=== PATIENT | female | born 1975 | race African-American/Black ===

== ENCOUNTER 2017-03-10 13:30 | Inpatient (IN) | payer OTHER ==
[2017-03-10 17:12] VITALS: BMI 39.5
--- NOTE | 2017-03-10 18:56 | HP ---
COWS - Scale Resting Pulse: 2= [place] 101-120 Sweatin= Chills/Flushing Restless Observation: 1= Difficult to Sit Still Pupil Size: 0= Normal to Room Light Bone or Joint Aches: 1= Mild Discomfort Runny Nose/ Eye Tearin= Runny Nose/Eyes GI Upset > 30mins: 3= Vomiting/Diarrhea Tremor Observation: 2= Slight Tremor Visible Yawning Observation: 0= None Anxiety or Irritability: 2=Irritable/Anxious Goose Flesh Skin: 0=Smooth Skin COWS Score: 14 Admission [facility] Chief Complaint: WITHDRAWAL SX Allergies/Adverse Reactions: Allergies Allergy/AdvReac Type Severity Reaction Status Date / Time aspirin Allergy Severe Verified 03/10/17 17:15 avocado Allergy Severe Rash Verified 03/10/17 17:15 banana Allergy Severe Rash Verified 03/10/17 17:15 erythromycin base Allergy Severe Rash Verified 03/10/17 17:15 kiwi Allergy Severe Rash Verified 03/10/17 17:15 latex Allergy Severe Rash Verified 03/10/17 17:15 NSAIDS (Non-Steroidal Allergy Severe Itching Verified 03/10/17 17:15 Anti-Inflamma Penicillins Allergy Severe Itching Verified 03/10/17 17:15 pepper Allergy Severe Rash Verified 03/10/17 17:15 Tetracyclines Allergy Severe Rash Verified 03/10/17 17:15 History of Present Illness: 41 YEARS OLD FEMALE WITH LONG HISTORY OF OPIATE DEPENDENCE HAS DIABETES II AND ANXIETY IS ADMITTED TO DETOX Exam Limitations: No Limitations - Ebola screening Have you traveled outside of the country in the last 21 days: No Have you had contact with anyone from an Ebola affected area: No Have you been sick,other than usual withdrawal symptoms: No Do you have a fever: No - Review of Systems Constitutional: Changes in sleep, Weight Stable EENT: reports: Blurred Vision (EYE GLASSES) Respiratory: reports: No Symptoms reported Cardiac: reports: No Symptoms Reported GI: reports: Nausea, Poor Fluid Intake, Abdominal cramping : reports: No Symptoms Reported Musculoskeletal: reports: Back Pain, Joint Pain, Muscle Pain, Neck Pain Integumentary: reports: No Symptoms Reported Neuro: reports: Tremors Endocrine: reports: No Symptoms Reported Hematology: reports: No Symptoms Reported Psychiatric: reports: Judgement Intact, Orientated x3, Anxious, Depressed Other Systems: Reviewed and Negative Patient History - Patient Medical History Hx Anemia: No Hx Asthma: No Hx Chronic Obstructive Pulmonary Disease (COPD): No Hx Cancer: No Hx Cardiac Disorders: No Hx Congestive Heart Failure: No Hx Hypertension: No Hx Hypercholesterolemia: No Hx Pacemaker: No HX Cerebrovascular Accident: No Hx Seizures: No Hx Dementia: No Hx Diabetes: Yes (Tyoe II) Hx Gastrointestinal Disorders: No Hx Liver Disease: No Hx Genitourinary Disorders: No Hx Sexually Transmitted Disorders: No Hx Renal Disease (ESRD): No Hx Thyroid Disease: No Hx Human Immunodeficiency Virus (HIV): No Hx Hepatitis C: No Hx Depression: Yes Hx Suicide Attempt: No Hx Bipolar Disorder: No Hx Schizophrenia: No - Patient Surgical History Past Surgical History: Yes Hx Neurologic Surgery: No Hx Cataract Extraction: No Hx Cardiac Surgery: No Hx Lung Surgery: No Hx Breast Surgery: Yes (breast reduction and lift in 10/17) Hx Breast Biopsy: No Hx Abdominal Surgery: No Hx Appendectomy: No Hx Cholecystectomy: No Hx Genitourinary Surgery: No Hx Section: No Hx Orthopedic Surgery: No Hx Hysterectomy: No Other Surgical History: bunionectomy R foot Anesthesia Reaction: No - PPD History Previous Implant?: Yes Documented Results: Negative w/o proof Implanted On Prior [facility] Admission?: No PPD to be Administered?: Yes - Reproductive History Patient is a Female of Child Bearing Age (11 -55 yrs old): Yes Last Menstrual Period: 03/09/17 Patient : No - Smoking Cessation Smoking history: Never smoked Have you smoked in the past 12 months: No Hx Chewing Tobacco Use: No Initiated information on smoking cessation: No - Substance & Tx. History Hx Alcohol Use: No Hx Substance Use: Yes Substance Use Type: Opiates Hx Substance Use Treatment: No - Substances Abused percocet Route: Oral Frequency: Daily Amount used: 8 pills (10mg-325mg) Age of first use: 41 Date of Last Use: 03/10/17 Family Disease History - Family Disease History Family Disease History: Diabetes: Mother, Heart Disease: Father (), Other: Father Admission Physical Exam BHS - Vital Signs Vital Signs: Vital Signs - 24 hr 03/10/17 17:00 Temperature 96.0 F L Pulse Rate 114 H Respiratory 20 Rate Blood Pressure 142/81 - Physical General Appearance: Yes: Appropriately Dressed, Mild Distress, Obese, Tremorous , Irritable, Sweating, Anxious HEENTM: Yes: Hearing grossly Normal, Normal ENT Inspection, Normocephalic, Normal Voice, Other (EYE GLASSES) Respiratory: Yes: Chest Non-Tender, Lungs Clear, Normal Breath Sounds, No Respiratory Distress, No Accessory Muscle Use Neck: Yes: Supple, Trachea in good position Breast: Yes: Breasts Symetrical Cardiology: Yes: Regular Rhythm, S1, S2, Tachycardia Abdominal: Yes: Normal Bowel Sounds, Non Tender, Flat, Soft Genitourinary: Yes: Within Normal Limits Back: Yes: Normal Inspection Musculoskeletal: Yes: full range of Motion, Gait Steady, Back pain, Muscle Pain Extremities: Yes: Normal Inspection, Normal Range of Motion, Non-Tender, Tremors Neurological: Yes: Fully Oriented, Alert, Motor Strength 5/5, Normal Response, Depressed Affect Integumentary: Yes: Warm Lymphatic: Yes: Within Normal Limits - Diagnostic (1) Opioid dependence with withdrawal Current Visit: Yes Status: Acute (2) Diabetes mellitus type II, uncontrolled Current Visit: Yes Status: Chronic Qualifiers: Diabetes mellitus complication status: without complication Diabetes mellitus director long term care insulin use: without director long term care use Qualified Code(s): E11.65 - Type 2 diabetes mellitus with hyperglycemia (3) Depression with anxiety Current Visit: Yes Status: Suspected (4) Dry skin dermatitis Current Visit: Yes Status: Chronic Cleared for Admission [facility] - Detox or Rehab [facility] Level of Care: Medically Managed Detox Regimen/Protocol: Methadone [facility] Breath Alcohol Content Breath Alcohol Content: 0 Urine Pregancy Test - Result Urine Test Results: Negative- NO Line Present Urine Drug Screen - Results Drug Screen Negative: No Urine Drug Screen Results: OPI-Opiates, BZO-Benzodiazepines, TCA-Tricyclic Antidepress, OXY-Oxycodone
[2017-03-10] MEDS ORDERED: MAGNESIUM CITRATE 300 ML BOTTLE PO PRN (18:58)
[2017-03-10] MEDS ORDERED: IBUPROFEN 400 MG TABLET (FP) PO PRN (18:58)
[2017-03-10] MEDS ORDERED: P-EPHED 60MG/TRIPROLIDI 2.5MG TABLET PO PRN (18:58)
[2017-03-10] MEDS ORDERED: guaiFENesin/D-METHORPHAN HB 10 ML UNIT-DOSE CUPS PO PRN (18:58)
[2017-03-10] MEDS ORDERED: METHADONE HCL 10 MG TABLET (FOR DETOX USE ONLY) PO ONE ×2 (18:58→23:00)
[2017-03-10] MEDS ORDERED: ACETAMINOPHEN 325 MG TABLET (FP) PO PRN (18:58)
[2017-03-10] MEDS ORDERED: LOPERAMIDE HCL 2 MG CAPSULE PO PRN (18:58)
[2017-03-10] MEDS ORDERED: MAG HYDROX/AL HYDROX/SIMETH 30 ML UNIT-DOSE CUP PO PRN (18:58)
[2017-03-10] MEDS ORDERED: MAGNESIUM HYDROX 2400MG/30ML ORAL SUSPENSION 30 ML CUP PO PRN (18:58)
[2017-03-10] MEDS ORDERED: MENTHOL/PHENOL 1 EACH UD MM PRN (18:58)
[2017-03-10] MEDS: diazePAM 5 MG TABLET PO PRN (20:01)
[2017-03-10] MEDS ORDERED: INSULIN (NOVOLOG) ASPART 100 UNITS/ML 10ML VIAL ONE (20:06)
[2017-03-10] MEDS: INSULIN SLIDING SCALE (NOVOLOG) 1 VIAL SQ SCH (20:08)
[2017-03-10] MEDS ORDERED: diphenhydrAMINE HCL 25 MG CAPSULE (FP) PO ONE (20:53)
--- NOTE | 2017-03-10 20:55 | PN ---
S Progress Note Note: ASKED TO SEE CLIENT FOR ALLERGIC RXN. "CLIENT ATE MTZ PEPPERS AND HER THROAT IS CLOSING UP" PER RN. PT REPORTS SHE IS ALLERGIC TO MTZ PEPPERS HAS A TINGLING SENSATION TO THE BACK OF HER THROAT AND SKIN IS ITCHY. DENIES SOB, C.P. 0- Vital Signs Temperature 99.5 F 03/10/17 21:32 Pulse Rate 99 H 03/10/17 21:32 Respiratory Rate 18 03/10/17 21:32 Blood Pressure 135/61 03/10/17 21:32 O2 Sat by Pulse Oximetry (%) SEATED AT BED SIDE AWAKE ALERT NAD WITH A THERMOMETER IN HER MOUTH A&O X3. SPEAKING W/O DIFFICULTY NORMAL RATE, TONE MOUTH- NO SWELLING OF TONGUE AIRWAY APPEARS PATENT LUNGS- CTA B/L O2 SAT 99% RA CV- RRR SKIN- NO RASH OR HIVES NOTED A- ALLERGIC RXN P- BENADRYL 50 MG IM STAT BENADRYL 25 MG PO Q 6 HOURS X 4 DOSES. THEN CONTINUE BENDARYL BID ORDERED CLOSE MONITORING FOR ANY DELAYED SX'S WILL REEVALUATE NOTE:CLIENT WAS REEVALAUTED 30 MINUTE LATER DENIES ANY C/O AT THIS TIME TO INCLUDE DENIES SOB, PRURITIS, C.P. EXCEPT FEELING DROWSI. D/W CLIENT THIS NORMAL DUE TO THE BENADRYL. CLIENT IS AWAKE ALERT X 3 PLEASANT LUNGS CLEAR TO AUSCULTATION NO S/SX OF RASH, HIVES OR SWELLING NOTED. WILL CONT TO MONITOR
[2017-03-10] MEDS ORDERED: diphenhydrAMINE HCL 50 MG CAPSULE PO SCH (22:00)
[2017-03-10 22:40] LABS: URINE APPEARANCE CLEAR; URINE BILIRUBIN NEGATIVE (NEGATIVE); URINE BLOOD NEGATIVE (NEGATIVE); URINE COLOR STRAW; URINE GLUCOSE (UA) 3+ (NEGATIVE); URINE KETONE NEGATIVE (NEGATIVE); URINE NITRITE NEGATIVE (NEGATIVE); URINE PROTEIN NEGATIVE (NEGATIVE); URINE UROBILINOGEN NEGATIVE mg/dL (0.2-1.0)
[2017-03-10] MEDS: diphenhydrAMINE HCL 25 MG CAPSULE (FP) PO SCH (23:01)
[2017-03-10] MEDS: MINERAL OIL/PETROLAT/WATER TOPICAL CREAM 113 GM JAR TP SCH (23:02)
[2017-03-10] MEDS: THIAMINE HCL 100 MG TABLET (FP) PO SCH (23:02)
[2017-03-11] MEDS: diphenhydrAMINE HCL 25 MG CAPSULE (FP) PO SCH (05:37)
[2017-03-11] MEDS: diazePAM 5 MG TABLET PO PRN ×4 (05:45→20:17)
[2017-03-11] MEDS: metFORMIN HCL 500 MG TABLET (FP) PO SCH ×2 (06:32→16:34)
[2017-03-11] MEDS ORDERED: INSULIN (NOVOLOG) ASPART 100 UNITS/ML 10ML VIAL ONE (07:55)
[2017-03-11] MEDS: INSULIN SLIDING SCALE (NOVOLOG) 1 VIAL SQ SCH ×2 (08:05→16:30)
[2017-03-11] MEDS ORDERED: METHADONE HCL 10 MG TABLET (FOR DETOX USE ONLY) PO ONE (10:00)
[2017-03-11 10:02] LABS: MCHC 32.6 g/dl (32.0-36.0); MEAN CELL VOLUME 82.9 fl (80-96); MEAN PLT VOLUME 9.3 fl (7.5-11.1); PLATELET COUNT 276 K/MM3 (134-434); WHITE BLOOD COUNT 4.9 K/mm3 (4.0-10.0)
[2017-03-11] MEDS: PRENATAL VITAMINS W/ FOLIC ACID TABLET (FP) PO SCH (10:26)
[2017-03-11] MEDS ORDERED: BISACODYL 10 MG SUPP.RECT RC ONE (11:04)
[2017-03-11] MEDS ORDERED: diphenhydrAMINE HCL 50 MG CAPSULE PO PRN (11:05)
--- NOTE | 2017-03-11 11:10 | PN ---
BHS COWS - Scale Resting Pulse: 0= [place] 80 or Below Sweatin=Flushed/Facial Moisture Restless Observation: 1= Difficult to Sit Still Pupil Size: 0= Normal to Room Light Bone or Joint Aches: 2= Severe Diffuse Aches Runny Nose/ Eye Tearin= Runny Nose/Eyes GI Upset > 30mins: 1= Stomach Cramp Tremor Observation of Outstretched Hands: 2= Slight Tremor Visible Yawning Observation: 2= >3x During Session Anxiety or Irritability: 2=Irritable/Anxious Goose Flesh Skin: 0=Smooth Skin COWS Score: 14 BHS Progress Note (SOAP) Subjective: agitation sweats shakes interrupted sleep neck pain mild body itch constipation muscles spasm/tension Objective: 03/11/17 11:08 Vital Signs Temperature 97.4 F L 03/11/17 10:43 Pulse Rate 79 03/11/17 10:43 Respiratory Rate 18 03/11/17 10:43 Blood Pressure 120/80 03/11/17 10:43 O2 Sat by Pulse Oximetry (%) Laboratory Tests 03/10/17 03/10/17 03/11/17 20:03 21:00 05:36 WBC RBC Hgb Hct MCV MCH MCHC RDW Plt Count MPV POC Glucometer 375 262 Urine Color Straw Urine Appearance Clear Urine pH 5.0 Ur Specific [place] 1.032 Urine Protein Negative Urine Glucose (UA) 3+ H Urine Ketones Negative Urine Blood Negative Urine Nitrite Negative Urine Bilirubin Negative Urine Urobilinogen Negative 03/11/17 07:00 WBC 4.9 RBC 4.40 Hgb 11.9 Hct 36.5 MCV 82.9 MCH 27.0 MCHC 32.6 RDW 14.0 Plt Count 276 MPV 9.3 POC Glucometer Urine Color Urine Appearance Urine pH Ur Specific [place] Urine Protein Urine Glucose (UA) Urine Ketones Urine Blood Urine Nitrite Urine Bilirubin Urine Urobilinogen labs pending aaox3 ambulating no acute distress Assessment: 03/11/17 11:09 withdrawal sx Plan: continue detox increase fluids lidocaine patch baclofen dulcolax suppository
[2017-03-11 11:36] LABS: ALBUMIN 3.2 g/dl (3.4-5.0); ALK PHOS 119 U/L (45-117); ANION GAP 9 (8-16); BILIRUBIN,TOTAL 0.4 mg/dL (0.2-1.0); CALCIUM 8.4 mg/dL (8.5-10.1); CO2 27 mmol/L (21-32); CREATININE 0.6 mg/dL (0.55-1.02); GLUCOSE,RANDOM 248 mg/dL (74-106); SGOT/AST 10 U/L (15-37); SGPT/ALT 14 U/L (12-78); TOT PROT 6.9 g/dl (6.4-8.2)
[2017-03-11 12:00] LABS: URINE LEUK ESTERASE Negative (NEGATIVE)
[2017-03-11] MEDS: BACLOFEN 10 MG TABLET (FP) PO SCH ×3 (12:09→22:42)
[2017-03-11] MEDS: diphenhydrAMINE HCL 50 MG CAPSULE PO PRN (12:11)
[2017-03-11] MEDS: LIDOCAINE 5% TOPICAL PATCH TP SCH (12:12)
--- NOTE | 2017-03-11 15:20 | CONSULT ---
[facility] Psychiatric Consult - Data Date of interview: 03/11/17 Admission source: [facility] Identifying data: This is a 41 years old female with no psychiatric [id number] history, intoxicated with: Opioids, Benzodiazepins, Nicotine Substance Abuse History: - Smoking Cessation. Smoking history: Never smoked. Have you smoked in the past 12 months: No. Hx Chewing Tobacco Use: No. Initiated information on smoking cessation: No. - Substance & Tx. History. Hx Alcohol Use: No. Hx Substance Use: Yes. Substance Use Type: Opiates. Hx Substance Use Treatment: No. - Substances Abused. percocet. Route: Oral. Frequency: Daily. Amount used: 8 pills (10mg-325mg). Age of first use: 41. Date of Last Use: 03/10/17 Medical History: DM-2 Psychiatric History: Casie singh history of dspression and anxirty, reports insomknia, reports taking prior to admission for insomnia-Ativan 1mg po qhs Physical/Sexual Abuse/Trauma History: Denies Additional Comment: Ativan 1mg po qhs Mental Status Exam - Mental Status Exam Alert and Oriented to: Place, Person Patient Appearance: Well Groomed Mood: Apprehensive Patient Behavior: Cooperative Speech Pattern: Appropriate Voice Loudness: Normal Thought Process: Goal Oriented Thought Disorder: Being Controlled Hallucinations: Denies Suicidal Ideation: Denies Homicidal Ideation: Denies Insight/Judgement: Fair Sleep: Difficulty falling asleep Appetite: Weight gain Muscle strength/Tone: Normal Gait/Station: Normal Additional Comments: Ativan 1mg po qhs Psychiatric Findings - Problem List ([place] 1, 2,3) (1) Opioid-induced sleep disorder, insomnia type, with onset during discontinuation/withdrawal Current Visit: Yes Status: Acute (2) Benzodiazepine abuse Current Visit: Yes Status: Acute (3) Drug-induced mood disorder Current Visit: Yes Status: Suspected (4) Opioid dependence with withdrawal Current Visit: Yes Status: Acute (5) Depression with anxiety Current Visit: Yes Status: Suspected - Initial Treatment Plan Initial Treatment Plan: Ambien 10mg po prn qhs for insomnia
--- NOTE | 2017-03-11 16:39 | EKG ---
Test Reason : Blood Pressure : / mmHG Vent. Rate : 087 BPM Atrial Rate : 087 BPM P-R Int : 176 ms QRS Dur : 080 ms QT Int : 374 ms P-R-T Axes : 062 020 035 degrees QTc Int : 450 ms NORMAL SINUS RHYTHM NORMAL ECG NO PREVIOUS ECGS AVAILABLE Confirmed by JONATHAN ROWLAND MD ([id number]) on 03/11/2017 4:39:27 PM Referred By: Toi Padilla Confirmed By:JONATHAN ROWLAND MD
[2017-03-11] MEDS: THIAMINE HCL 100 MG TABLET (FP) PO SCH (22:42)
[2017-03-11] MEDS: ZOLPIDEM TARTRATE 10 MG TABLET (PARK CARE ONLY) PO PRN (22:42)
[2017-03-11] MEDS: LIDOCAINE PATCH REMOVAL MC SCH (22:43)
[2017-03-11] MEDS: MINERAL OIL/PETROLAT/WATER TOPICAL CREAM 113 GM JAR TP SCH (23:03)
[2017-03-12] MEDS: BACLOFEN 10 MG TABLET (FP) PO SCH ×3 (05:31→22:33)
[2017-03-12] MEDS: diazePAM 5 MG TABLET PO PRN ×4 (05:32→22:34)
[2017-03-12] MEDS ORDERED: INSULIN (NOVOLOG) ASPART 100 UNITS/ML 10ML VIAL ONE ×2 (08:07→16:56)
[2017-03-12] MEDS: INSULIN SLIDING SCALE (NOVOLOG) 1 VIAL SQ SCH ×2 (08:09→17:10)
[2017-03-12] MEDS: metFORMIN HCL 500 MG TABLET (FP) PO SCH ×2 (08:09→17:08)
[2017-03-12] MEDS ORDERED: SODIUM PHOSPHATE/NA BIPHOS 133 ML ENEMA PR ONE (09:16)
[2017-03-12] MEDS ORDERED: METHADONE HCL 5 MG TABLET (FOR DETOX USE ONLY) PO ONE (10:00)
--- NOTE | 2017-03-12 10:52 | PN ---
[facility] Progress Note Note: pt states she touched her roommates tray which had a banana and now she is itchy and her tongue is starting to swell, Benadryl 50mg IM x one ordered.
[2017-03-12] MEDS: PRENATAL VITAMINS W/ FOLIC ACID TABLET (FP) PO SCH (10:55)
[2017-03-12] MEDS: LIDOCAINE 5% TOPICAL PATCH TP SCH (10:56)
--- NOTE | 2017-03-12 10:56 | PN ---
BHS COWS - Scale Resting Pulse: 2= [place] 101-120 Sweatin=Flushed/Facial Moisture Restless Observation: 1= Difficult to Sit Still Pupil Size: 0= Normal to Room Light Bone or Joint Aches: 2= Severe Diffuse Aches Runny Nose/ Eye Tearin= None GI Upset > 30mins: 1= Stomach Cramp Tremor Observation of Outstretched Hands: 2= Slight Tremor Visible Yawning Observation: 0= None Anxiety or Irritability: 2=Irritable/Anxious Goose Flesh Skin: 3=Piloerection COWS Score: 15 S Progress Note (SOAP) Subjective: sweats constipation body aches anxiety Objective: 03/12/17 10:54 Vital Signs Temperature 97.7 F 03/12/17 10:27 Pulse Rate 77 03/12/17 10:27 Respiratory Rate 20 03/12/17 10:27 Blood Pressure 124/77 03/12/17 10:27 O2 Sat by Pulse Oximetry (%) Laboratory Tests 03/10/17 03/10/17 03/11/17 20:03 21:00 05:36 WBC RBC Hgb Hct MCV MCH MCHC RDW Plt Count MPV Sodium Potassium Chloride Carbon Dioxide Anion Gap BUN Creatinine Creat Clearance w eGFR POC Glucometer 375 262 Random Glucose Hemoglobin A1c % Calcium Total Bilirubin AST ALT Alkaline Phosphatase Total Protein Albumin Urine Color Straw Urine Appearance Clear Urine pH 5.0 Ur Specific [place] 1.032 Urine Protein Negative Urine Glucose (UA) 3+ H Urine Ketones Negative Urine Blood Negative Urine Nitrite Negative Urine Bilirubin Negative Urine Urobilinogen Negative Ur Leukocyte Esterase Negative RPR Titer 03/11/17 03/11/17 03/11/17 07:00 07:00 07:00 WBC 4.9 RBC 4.40 Hgb 11.9 Hct 36.5 MCV 82.9 MCH 27.0 MCHC 32.6 RDW 14.0 Plt Count 276 MPV 9.3 Sodium 137 Potassium 4.2 Chloride 101 Carbon Dioxide 27 Anion Gap 9 BUN 8 Creatinine 0.6 Creat Clearance w eGFR > 60 POC Glucometer Random Glucose 248 H Hemoglobin A1c % Calcium 8.4 L Total Bilirubin 0.4 AST 10 L ALT 14 Alkaline Phosphatase 119 H Total Protein 6.9 Albumin 3.2 L Urine Color Urine Appearance Urine pH Ur Specific [place] Urine Protein Urine Glucose (UA) Urine Ketones Urine Blood Urine Nitrite Urine Bilirubin Urine Urobilinogen Ur Leukocyte Esterase RPR Titer Nonreactive 03/11/17 03/11/17 03/12/17 07:00 15:17 05:30 WBC RBC Hgb Hct MCV MCH MCHC RDW Plt Count MPV Sodium Potassium Chloride Carbon Dioxide Anion Gap BUN Creatinine Creat Clearance w eGFR POC Glucometer 171 214 Random Glucose Hemoglobin A1c % 10.9 H Calcium Total Bilirubin AST ALT Alkaline Phosphatase Total Protein Albumin Urine Color Urine Appearance Urine pH Ur Specific [place] Urine Protein Urine Glucose (UA) Urine Ketones Urine Blood Urine Nitrite Urine Bilirubin Urine Urobilinogen Ur Leukocyte Esterase RPR Titer aaox3 ambulating no acute distress after Benadryl 50mg IM x one; pt states she feels much better. earlier today pt touched banana by mistake and was having an allergic reaction. Assessment: 03/12/17 10:56 withdrawal sx Plan: continue detox increase fluids fleets enema x one
[2017-03-12] MEDS: diphenhydrAMINE HCL 50 MG CAPSULE PO PRN (14:22)
[2017-03-12] MEDS: ZOLPIDEM TARTRATE 10 MG TABLET (PARK CARE ONLY) PO PRN (22:33)
[2017-03-12] MEDS: THIAMINE HCL 100 MG TABLET (FP) PO SCH (22:33)
[2017-03-12] MEDS: MINERAL OIL/PETROLAT/WATER TOPICAL CREAM 113 GM JAR TP SCH (22:34)
[2017-03-12] MEDS: LIDOCAINE PATCH REMOVAL MC SCH (22:34)
[2017-03-13] MEDS: diphenhydrAMINE HCL 50 MG CAPSULE PO PRN ×3 (00:02→22:34)
[2017-03-13] MEDS: diazePAM 5 MG TABLET PO PRN ×3 (05:26→14:51)
[2017-03-13] MEDS: BACLOFEN 10 MG TABLET (FP) PO SCH ×3 (05:26→22:32)
[2017-03-13] MEDS: INSULIN SLIDING SCALE (NOVOLOG) 1 VIAL SQ SCH ×2 (08:00→16:47)
[2017-03-13] MEDS: metFORMIN HCL 500 MG TABLET (FP) PO SCH ×2 (08:00→16:47)
[2017-03-13] MEDS ORDERED: INSULIN (NOVOLOG) ASPART 100 UNITS/ML 10ML VIAL ONE ×2 (08:33→16:45)
[2017-03-13] MEDS ORDERED: diphenhydrAMINE HCL 25 MG CAPSULE (FP) PO PRN (09:38)
[2017-03-13] MEDS ORDERED: METHADONE HCL 5 MG TABLET (FOR DETOX USE ONLY) PO ONE (10:00)
[2017-03-13] MEDS: PRENATAL VITAMINS W/ FOLIC ACID TABLET (FP) PO SCH (10:46)
[2017-03-13] MEDS: LIDOCAINE 5% TOPICAL PATCH TP SCH (10:46)
--- NOTE | 2017-03-13 14:22 | PN ---
BHS Progress Note (SOAP) Subjective: alert,irritable,anxious,interrupted sleep,pain in the body Objective: 03/13/17 14:21 Vital Signs Temperature 98.6 F 03/13/17 11:24 Pulse Rate 83 03/13/17 11:24 Respiratory Rate 20 03/13/17 11:24 Blood Pressure 106/69 03/13/17 11:24 O2 Sat by Pulse Oximetry (%) Assessment: 03/13/17 14:21 withdrawal symptom Plan: continue detox
[2017-03-13] MEDS: ZOLPIDEM TARTRATE 10 MG TABLET (PARK CARE ONLY) PO PRN (22:32)
[2017-03-13] MEDS: MINERAL OIL/PETROLAT/WATER TOPICAL CREAM 113 GM JAR TP SCH (22:32)
[2017-03-13] MEDS: THIAMINE HCL 100 MG TABLET (FP) PO SCH (22:32)
[2017-03-13] MEDS: LIDOCAINE PATCH REMOVAL MC SCH (22:32)
[2017-03-14] MEDS: BACLOFEN 10 MG TABLET (FP) PO SCH ×3 (05:47→23:00)
[2017-03-14] MEDS: metFORMIN HCL 500 MG TABLET (FP) PO SCH ×2 (06:11→17:30)
--- NOTE | 2017-03-14 08:05 | PN ---
S Progress Note (SOAP) Subjective: alert,irritable,interrupted sleep Objective: 03/14/17 08:03 Vital Signs Temperature 97.3 F L 03/14/17 06:21 Pulse Rate 73 03/14/17 06:21 Respiratory Rate 18 03/14/17 06:21 Blood Pressure 119/68 03/14/17 06:21 O2 Sat by Pulse Oximetry (%) Assessment: 03/14/17 08:04 withdrawal symptom Plan: continue detox,discharge in am at 0700
[2017-03-14] MEDS: INSULIN SLIDING SCALE (NOVOLOG) 1 VIAL SQ SCH ×2 (08:28→17:30)
[2017-03-14] MEDS ORDERED: INSULIN (NOVOLOG) ASPART 100 UNITS/ML 10ML VIAL ONE (08:32)
[2017-03-14] MEDS ORDERED: METHADONE HCL 10 MG TABLET (FOR DETOX USE ONLY) PO ONE (10:00)
[2017-03-14] MEDS: PRENATAL VITAMINS W/ FOLIC ACID TABLET (FP) PO SCH (10:28)
[2017-03-14] MEDS: LIDOCAINE 5% TOPICAL PATCH TP SCH (10:28)
[2017-03-14] MEDS: diphenhydrAMINE HCL 50 MG CAPSULE PO PRN ×2 (10:57→22:38)
[2017-03-14] MEDS: THIAMINE HCL 100 MG TABLET (FP) PO SCH (22:35)
[2017-03-14] MEDS: LIDOCAINE PATCH REMOVAL MC SCH (22:35)
[2017-03-14] MEDS: MINERAL OIL/PETROLAT/WATER TOPICAL CREAM 113 GM JAR TP SCH (22:35)
[2017-03-14] MEDS ORDERED: diphenhydrAMINE HCL 25 MG CAPSULE (FP) PO ONE (22:38)
[2017-03-15] MEDS ORDERED: METHADONE HCL 5 MG TABLET (FOR DETOX USE ONLY) PO ONE (06:00)
[2017-03-15 06:12] VITALS: BP 106/66; PULSE 77; TEMP 97.7
[2017-03-15] MEDS: metFORMIN HCL 500 MG TABLET (FP) PO SCH (06:43)
[2017-03-15] MEDS: BACLOFEN 10 MG TABLET (FP) PO SCH (06:43)
[2017-03-15] MEDS: INSULIN SLIDING SCALE (NOVOLOG) 1 VIAL SQ SCH (06:44)
--- NOTE | 2017-03-15 08:09 | DS ---
[facility] Detox Discharge Summary Admission Date: 03/10/17 Discharge Date: 03/15/17 - History Present History: Opioid Dependence Additional Comments: follow up with after care program as arrangement Pertinent Past History: type 2 dm anxiety and depression - Physical Exam Results Vital Signs: Vital Signs Temperature 97.7 F 03/15/17 06:11 Pulse Rate 77 03/15/17 06:11 Respiratory Rate 18 03/15/17 06:11 Blood Pressure 106/66 03/15/17 06:11 O2 Sat by Pulse Oximetry (%) Pertinent Admission Physical Exam Findings: withdrawal symptom - Treatment Hospital Course: Detox Protocol Followed, Detoxed Safely, Responded well, Discharged Condition Good Patient has Accepted a Rehab Referral to: declined - Medication Discharge Medications: Ambulatory Orders Metformin HCl [Glucophage] 1,000 mg PO BID 03/10/17 - Diagnosis (1) Opioid dependence with withdrawal Status: Acute (2) DM2 (diabetes mellitus, type 2) Status: Acute (3) Anxiety and depression Status: Acute - AMA Did Patient Leave Against Medical Advice: No
== END 2017-03-15 06:52 | disposition home or self-care (01) | DRG 773 ==
LOC: YASAS 13:30 → Y6N 18:17
PROVIDERS: ADMIT Internal Medicine; ATTEND Internal Medicine
PROC: HZ2ZZZZ Detoxification Services for Substance Abuse Treatment (ICD-10-PCS; principal; 2017-03-10)
DX: F11.23 Opioid dependence with withdrawal (principal); F13.10 Sedative, hypnotic or anxiolytic abuse, uncomplicated; F41.9 Anxiety disorder, unspecified; F19.24 Other psychoactive substance dependence with psychoactive substance-induced mood disorder; F19.282 Other psychoactive substance dependence with psychoactive substance-induced sleep disorder; E11.9 Type 2 diabetes mellitus without complications; Z79.84 Long term (current) use of oral hypoglycemic drugs
CPT/HCPCS: 36415; 80053; 81003; 83036; 85027; 86593; 93005; 93010; J0475